=== PATIENT | female | born 1970 | race Caucasian/White ===

== ENCOUNTER 2017-02-12 14:00 | Emergency (ER) | payer MEDICAID, OTHER ==
[2017-02-12 14:00] VITALS: BMI 28.1
[2017-02-12 14:04] VITALS: BP 129/75; PULSE 74; RESP 16; TEMP 98.1; O2SAT 100
[2017-02-12] MEDS ORDERED: DiphenhydrAMINE 50 mg/ml Inj IVP STA (15:14)
--- NOTE | 2017-02-12 15:25 | ED PDOC ---
HPI: Allergic Reaction Time Seen by Provider: 02/12/17 15:03 Chief Complaint (Nursing): Abnormal Skin Integrity Chief Complaint (Provider): Rash History Per: Patient History/Exam Limitations: no limitations Onset/Duration Of Symptoms: Intermittent Episodes (for 2 months) Current Symptoms Are (Timing): Still Present Associated Symptoms: Skin Rash Home/EMS Treatment: Benadryl Additional Complaint(s): 46 year old female with no past medical history presents to the ER complaining of a rash to her chest and left arm, intermittently for the past 2 months. She states the rash comes and goes spontaneously. Was taking Benadryl without improvement. Patient also notes some joint pain near the left elbow. She cannot recall any new foods, detergents, or lotions that may be causing symptoms. PMD: None provided Past Medical History Reviewed: Historical Data, Nursing Documentation, Vital Signs Vital Signs: Last Vital Signs Temp 98.1 F 02/12/17 14:04 Pulse 74 02/12/17 14:04 Resp 16 02/12/17 14:04 BP 129/75 02/12/17 14:04 Pulse Ox 100 02/12/17 14:58 - Medical History PMH: No Chronic Diseases - Family History Family History: States: Unknown Family Hx - Home Medications Home Medications: Ambulatory Orders Medication Instructions Recorded Acetaminophen/Codeine 1 tab PO Q4H #10 tab 10/10/15 [Tylenol/Codeine 300 MG/30 MG] Ibuprofen [Motrin] 600 mg PO Q6 #20 tab 10/10/15 Prednisone [Deltasone] 3 tab PO DAILY #12 tablet 02/12/17 - Allergies Allergies/Adverse Reactions: Allergies Allergy/AdvReac Type Severity Reaction Status Date / Time No Known Allergies Allergy Verified 02/12/17 14:57 Review of Systems ROS Statement: Except As Marked, All Systems Reviewed And Found Negative Constitutional: Negative for: Fever, Chills Musculoskeletal: Positive for: Other (joint pain at left elbow) Skin: Positive for: Rash (to chest and left arm) Physical Exam - Reviewed Nursing Documentation Reviewed: Yes Vital Signs Reviewed: Yes - Physical Exam Appears: Positive for: Well, Non-toxic, No Acute Distress Head Exam: Positive for: ATRAUMATIC, NORMOCEPHALIC Skin: Positive for: Warm, Dry, Rash (Moderate erythema with blanching noted to anterior chest wall. Small papular lesions noted to the left forearm) Eye Exam: Positive for: EOMI, Normal appearance, PERRL Neck: Positive for: Normal, Painless ROM, Supple Extremity: Positive for: Normal ROM. Negative for: Deformity Neurologic/Psych: Positive for: Alert, Oriented (x3). Negative for: Motor/ Sensory Deficits - ECG O2 Sat by Pulse Oximetry: 100 (RA) Pulse Ox Interpretation: Normal Disposition - Clinical Impression Clinical Impression: Rash - Patient ED Disposition Is Patient to be Admitted: No Counseled Patient/Family Regarding: Diagnosis, Need For Followup - Disposition Referrals: [facility] [Outside] Disposition: Routine/Home Disposition Time: 15:17 Condition: FAIR Prescriptions: Prednisone [Deltasone] 3 tab PO DAILY #12 tablet Instructions: General Allergic Reaction (ED) Forms: [employer] (Montenegrin) Medical Decision Making Medical Decision Making: Time: 15:12 Initial Impression: 46 y/o female with rash Initial Plan: * Benadryl 50 mg IVP * Pepcid 20 mg IVP * Solu-medrol 125 mg IVP * Reevaluation Patient is medically stable for discharge. Will d/c with rx for prednisone. Advised to follow up with physician president for testing. Scribe Attestation: Documented by Marlene Fortune, acting as a scribe for Woodrow Villegas PA-C Provider Scribe Attestation: All medical record entries made by the Scribe were at my direction and personally dictated by me. I have reviewed the chart and agree that the record accurately reflects my personal performance of the history, physical exam, medical decision making, and the department course for this patient. I have also personally directed, reviewed, and agree with the discharge instructions and disposition.
[2017-02-12] MEDS ORDERED: DiphenhydrAMINE 50 mg/ml Inj ONE (15:29)
== END 2017-02-12 16:18 | disposition home or self-care (01) ==
LOC: H.ER 14:00
DX: T78.40XA Allergy, unspecified, initial encounter (principal)
CPT/HCPCS: 96374; 96375; 99281; J1200; J2930